=== PATIENT | male | born 1970 | race Caucasian/White ===

== ENCOUNTER 2017-01-21 12:41 | Day surgery (SDC) | payer BC ==
[2017-01-19 17:54] LABS: HEMATOCRIT 47.4 % (40.0-51.0); HEMOGLOBIN 15.4 g/dL (13.6-17.8)
[2017-01-19 18:01] LABS: BUN (BLOOD UREA NITROGEN) 20 MG/DL (6-23); CALCIUM, SERUM 9.1 MG/DL (8.5-10.4); CHLORIDE, SERUM 103 MMOL/L (96-112); CO2 (CARBON DIOXIDE) 27 MMOL/L (24-34); CREATININE 1.25 MG/DL (0.70-1.30); GFR AFRICAN AMERICAN 79 ML/MIN (>=60); GFR NON AFRICAN AMERICAN 68 ML/MIN (>=60); GLUCOSE, SERUM 106 MG/DL (60-99); POTASSIUM, SERUM 3.9 MMOL/L (3.5-5.3); SODIUM, SERUM 138 MMOL/L (135-148)
--- NOTE | ~2017-01-21 | OP ---
Record Of Operation [facility] [address] [place]. [address] NAME: LEANNE FRENCH : [birth year] STATUS : [facility]#: [id number] AGE: 46 ADM/REG DATE : 01/21/17 MR#: [id number] REPORT SERV DATE: 01/21/17 DICTATED BY: Sage AZAR DATE: 01/21/17 REPORT STATUS : Draft TRANSCRIBED BY: MODL DATE: 01/21/17 DATE OF PROCEDURE: 01/21/2017 PREOPERATIVE DIAGNOSIS: Gross hematuria. POSTOPERATIVE DIAGNOSIS: Gross hematuria. PROCEDURE: Cystoscopy, bilateral retrograde pyelography, examination under anesthesia. SURGEON: Sage Azar M.D. ANESTHESIA: General. COMPLICATIONS: None. DRAINS: None. BRIEF HISTORY: Mr. French is a 46-year-old white male with recent gross hematuria. Urine culture was negative. CT urogram and cytology were negative as well. He needed cystoscopy to complete his evaluation and requested anesthesia. The risks of bleeding, infection, anesthesia, injury to adjacent organs, need for bladder biopsy, postoperative catheter, stents, etc, were discussed. There were no unanswered questions. DESCRIPTION OF PROCEDURE: Under excellent general anesthesia, the patient was prepped and draped in standard lithotomy position. Preliminary exam revealed a normal circumcised penis. Normal testes, epididymis, and vas with a normal scrotum. Digital exam revealed a 2+ symmetric, smooth prostate gland. Cystoscopy was performed with a 30- and 70-degree lens, revealed a normal anterior urethra. The posterior urethra showed a slightly elevated median bar, but otherwise unremarkable. Inspection of the bladder revealed some friable looking vessels, but no tumor, stones, or foreign bodies were noted. The orifices appeared normal and were refluxing clear urine. An 8-Czech cone-tipped catheter was used to perform a right retrograde pyelogram. It showed a normal caliber ureter without filling defect or obstruction and good drainage. Similarly, the left ureter was normal in appearance without filling defect, obstruction, or other abnormality. The case was terminated. I plan to discharge Mr. French as an outpatient with the following instructions. DISCHARGE INSTRUCTIONS: 1. Home today. 2. Pyridium 200 mg one p.o. t.i.d. p.r.n. bladder pain, 15. 3. I do not need to see him back for this issue. I am happy to see him for his other urologic issues at any time or at his scheduled followup. ROGELIO/JANES [facility] Of [place] [id number] [place]. [address] NAME: LEANNE FRENCH : [birth year] STATUS : [facility] PAT#: [id number] AGE: 46 ADM/REG DATE : 01/21/17 MR#: [id number] REPORT SERV DATE: 01/21/17 DICTATED BY: Sage AZAR DATE: 01/21/17 REPORT STATUS : Draft TRANSCRIBED BY: JANES DATE: 01/21/17 Sage Azar M.D. / [id number] CC: Pawan Lu M.D.
[~2017-01-21 12:41] MED LIST: AMBIEN CR12.5 MG PO; ATRONASAL6 NAS; ATV1 PO; BC HEADACHE PO; CARDCD120 PO; CARTIA XT120 MG/24 PO; CYMBALTA60 PO; FLECAINIDE100 MG PO; KLOR-CON M2020 MEQ PO; L40 PO; LOFIB160 PO; LOP50 PO; LUNESTA1 MG PO; MAXALT10 MG PO; MIRAPEX0.75 MG PO; MIRAPEX1.5 MG PO; MULTIVITAMI1 PO; NUVIGIL150 MG PO; P20 PO; PRIN10 PO; PROTONIX PO; REST15 PO; TRAZ50 PO; VENTOLIN HFA INH; VITAMIN D31000 UNIT PO; WELLXL150 PO; XARELTO20 MG PO; ZOL100 PO
== END 2017-01-21 17:43 | disposition home or self-care (01) ==
LOC: SDC 12:41
PROC: BT14YZZ Fluoroscopy of Kidneys, Ureters and Bladder using Other Contrast (ICD-10-PCS; principal; 2017-01-21 15:00)
DX: R31.0 Gross hematuria (principal); I48.91 Unspecified atrial fibrillation; G47.33 Obstructive sleep apnea (adult) (pediatric); E78.00 Pure hypercholesterolemia, unspecified; I11.0 Hypertensive heart disease with heart failure; I50.9 Heart failure, unspecified; Z79.899 Other long term (current) drug therapy; Z98.890 Other specified postprocedural states
CPT/HCPCS: 36415; 74420; 80048; 85014; 85018; 93005; A9270-GY; J0330; J2250; J2405; J3010; Q9967